=== PATIENT | female | born 1945 | race Caucasian/White ===

== ENCOUNTER 2019-01-12 14:12 | Emergency (ER) | payer MEDICARE ==
[2019-01-12] MEDS ORDERED: predniSONE TAB* 20 MG PO ONE (17:40)
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
[2019-01-12 17:58] VITALS: BP 136/85
== END 2019-01-12 17:57 | disposition home or self-care (01) ==
LOC: ED 14:12
DX: M19.90 Unspecified osteoarthritis, unspecified site (principal); I10 Essential (primary) hypertension; Z88.8 Allergy status to other drugs, medicaments and biological substances; Z79.01 Long term (current) use of anticoagulants; Z86.711 Personal history of pulmonary embolism; Z87.891 Personal history of nicotine dependence
CPT/HCPCS: 99282; J7512

== ENCOUNTER 2019-02-25 12:13 | Inpatient (IN) | payer MEDICARE ==
[2019-02-25] MEDS ORDERED: Magnesium Hydroxide LIQ* 30 ML UDC PO PRN (16:08)
[2019-02-25] MEDS ORDERED: Acetaminophen TAB* 325 MG PO PRN (16:08)
[2019-02-25] MEDS ORDERED: Diazepam TAB(*) 5 MG PO PRN (16:18)
[2019-02-25] MEDS: oxyCODONE/Acetamin 5/325 MG* TAB PO PRN ×2 (16:24→21:42)
[2019-02-25] MEDS: Atorvastatin* 10 MG TAB PO SCH (17:24)
[2019-02-25] MEDS: Warfarin TAB(*) 2.5 MG PO SCH (17:24)
[2019-02-25] MEDS: Docusate CAP* 100 MG PO SCH (20:36)
[2019-02-25] MEDS: Senna TAB PO SCH (20:37)
[2019-02-25] MEDS: Metoprolol Tartrate TAB* 50 mg PO SCH (20:38)
--- NOTE | 2019-02-25 20:45 | HP ---
ADMISSION HISTORY AND PHYSICAL: DATE OF ADMISSION: 02/25/19 REASON FOR ADMISSION: Right total hip replacement; hematoma, right hip. HISTORY OF PRESENT ILLNESS: Ariella Mahoney is a 73-year-old female. She has a medical history significant for atrial fibrillation. She normally takes anticoagulation with Coumadin. She had ongoing pain with her right hip and saw Dr. Dago Serna. It was decided she would do best with a right total hip replacement. She was admitted to [facility] on 02/14/19 and underwent a right total hip replacement. Postoperatively, she was started on Coumadin again as well as Lovenox, which she was started on preoperatively. She was transferred to [facility] for subacute rehab on 02/18/19. Over the weekend, the patient did not feel well. On Thursday morning, the patient had labs drawn which showed that she was quite anemic. She was sent to the emergency room at [facility] for evaluation. Her hemoglobin had dropped to 7.3. She was evaluated in the emergency room. She had some bruising around her right hip area. X-rays did not show any obvious pathology. Her warfarin was put on hold. She was transfused 2 units of packed cells. Her Coumadin, as mentioned, was continued to be held. Her hemoglobin remained stable. She was found to have a Hemoccult stool positive and was started on a proton pump inhibitor. It was recommended that she have an EGD and a colonoscopy as an outpatient. The patient's Coumadin was restarted. She was felt to have physical therapy and occupational therapy needs. She is now being admitted for inpatient rehab so that she might return to independent living. PAST MEDICAL HISTORY: Significant for the aforementioned atrial fibrillation. She has a history of stroke from AFib in 2013, from which she has had a very good recovery. Hypertension. MEDICATIONS: Current medications include: 1. Lisinopril. 2. Hydrochlorothiazide. 3. She is on Lipitor instead of her usual Zocor. 4. Valium. 5. Lopressor. 6. Tramadol for pain control. 7. Protonix. 8. Coumadin. ALLERGIES: DEMEROL AND ERYTHROMYCIN. SOCIAL HISTORY: The patient quit smoking 6 months ago. She is a nondrinker. She lives by herself in an apartment in [facility]. She has a daughter who lives in the area. REVIEW OF SYSTEMS: The patient reports no current shortness of breath or chest pain. PHYSICAL EXAMINATION VITAL SIGNS: The patient's temperature is 97.3, blood pressure is 125/77, pulse is 74, respirations 18. HEENT: Her extraocular movements are intact. Tongue is midline. NECK: Supple. LUNGS: Sounded clear to auscultation bilaterally. HEART: Sounds were regular. S1 and S2 were audible. ABDOMEN: Soft and nontender. EXTREMITIES: Her right hip has a large area of hematoma under the skin. There is slight opening of her wound. Peripheral pulses appear to be intact. NEUROLOGIC: She is awake, alert, and oriented. Muscle strength is 5/5, except the right hip which is 3/5 secondary to pain. FUNCTIONAL EXAM: She transfers with minimal amount of assistance. ASSESSMENT: 1. Right total hip replacement. 2. Hematoma, right hip. PLAN: Our plan is to integrate her into a comprehensive and therapeutic rehab program, which should have the following goals: 1. Physical Therapy will work with the patient. They are going to work on functional transfer training and ambulation training with a walker. 2. Occupational Therapy will see the patient and work on her activities of daily living including toileting and toilet transfers. 3. For DVT prophylaxis as well as atrial fibrillation, we are going to resume her Coumadin and follow her INR . 4. For her atrial fibrillation, we are also going to continue her Coumadin and her Lopressor. 5. For hypertension, we will continue hydrochlorothiazide and lisinopril as well as Lopressor. 6. Adequate analgesia. Tramadol was not effective for her. We are going to try her on Percocet 1 tablet every 4 hours as needed. 7. Her bowels will be regulated. 8. [employer] Driver will be closely involved to make sure that any services and equipment the patient requires are in place prior to discharge. 9. Advance directives. The patient has a DNR order for home. We have filled out a MOLST for her. She does not wish to be resuscitated in case of medical emergency. 10. Home with appropriate services. ESTIMATED LENGTH OF STAY: 7 to 10 days. [id number]/[facility] #: [id number] LITA
[2019-02-26] MEDS: Cyclobenzaprine TAB* 10 MG PO PRN ×2 (03:34→15:43)
[2019-02-26 04:54] LABS: INR 1.11 (0.82-1.09)
[2019-02-26] MEDS: Hydrochlorothiazide TAB* 25 MG PO SCH (09:37)
[2019-02-26] MEDS: Pantoprazole TAB * 40 MG TAB PO SCH (09:39)
[2019-02-26] MEDS: Lisinopril TAB* 5 MG PO SCH (09:39)
[2019-02-26] MEDS: Metoprolol Tartrate TAB* 50 mg PO SCH ×2 (09:39→21:23)
[2019-02-26] MEDS: Docusate CAP* 100 MG PO SCH ×2 (09:40→21:24)
[2019-02-26] MEDS: oxyCODONE/Acetamin 5/325 MG* TAB PO PRN ×3 (12:10→23:55)
--- NOTE | 2019-02-26 15:12 | PN ---
Progress Note Date of Service: 02/26/19 Note: WESLEY COX was visited. Therapy notes read and reviewed. She was able to do therapy but is worn out afterwards and wasn't able to do as much as she thought she could. INR 1.11 Current Medications: Active Medications Generic Name Dose Route Start Last Admin Trade Name Freq PRN Reason Stop Dose Admin Acetaminophen 650 mg 02/25/19 16:08 Tylenol Tab* PO Q6H PRN FEVER/PAIN Atorvastatin Calcium 10 mg 02/25/19 17:00 02/25/19 17:24 Lipitor* PO 10 mg 1700 RICH Administration Cyclobenzaprine HCl 5 mg 02/25/19 16:20 02/26/19 03:34 Flexeril Tab* PO 5 mg TID PRN Administration SPASMS Diazepam 5 mg 02/25/19 16:18 Valium Tab(*) PO Q6H PRN ANXIETY Docusate Sodium 100 mg 02/25/19 21:00 02/26/19 09:40 Colace Cap* PO Not Given BID RICH Ferrous Gluconate 324 mg 02/27/19 09:00 Fergon Tab* PO DAILY RICH Hydrochlorothiazide 12.5 mg 02/26/19 09:00 02/26/19 09:37 Hydrodiuril Tab* PO 12.5 mg DAILY RICH Administration Lisinopril 5 mg 02/26/19 09:00 02/26/19 09:39 Prinivil Tab* PO 5 mg DAILY RICH Administration Magnesium Hydroxide 30 ml 02/25/19 16:08 Milk Of Magnesia Liq* PO Q6H PRN CONSTIPATION Metoprolol Tartrate 50 mg 02/25/19 21:00 02/26/19 09:39 Lopressor Tab* PO 50 mg Q12HR RICH Administration Oxycodone/Acetaminophen 1 tab 02/25/19 16:17 02/26/19 12:10 Percocet 5/325 Tab* PO 1 tab Q4H PRN Administration PAIN - MODERATE TO SEVERE Pantoprazole Sodium 40 mg 02/26/19 09:00 02/26/19 09:39 Protonix Tab* PO 40 mg DAILY RICH Administration Senna 2 tab 02/25/19 21:00 02/25/19 20:37 Senokot Tab* PO Not Given BEDTIME RICH Warfarin Sodium 1.25 mg 02/25/19 17:00 02/25/19 17:24 Coumadin Tab(*) PO 1.25 mg DAILY@1700 [facility] Administration Protocol Vital Signs: Vital Signs Temp Pulse Resp BP Pulse Ox 98.2 F 83 16 118/66 100 02/26/19 06:10 02/26/19 06:10 02/26/19 14:25 02/26/19 06:10 02/26/19 06:10 Lab Results: Laboratory Results - last 24 hr 02/26/19 04:33 INR (Anticoag Therapy) 1.11 H Exam: GENERAL: In no distress LUNGS: Clear bilaterally HEART: Irreg rhythm. S1, S2 ABDOMEN: Soft, +BS EXTREMITIES: Right leg edematous, ecchymotic near hip NEUROLOGIC: Alert and oriented, sensation intact, some surgery related weakness in right hip Assessment/Plan: 1. Right total hip replacement, hematoma, right hip: PT/OT 2. Atrial Fibrillation: Coumadin restarted. Lopressor 3. Anemia, secondary to hematoma: Check CBC Thursday 4. DVT Prophylaxis: Coumadin 5. Heme + Stool: Protonix. GI workup as outpatient 6. Advance Directives: DNR. Has MOLST 7. Analgesia: Percocet/Flexeril/Tylenol 02/26/19 15:07 02/26/19 15:09 02/26/19 15:13
[2019-02-26] MEDS: Warfarin TAB(*) 2.5 MG PO SCH (17:00)
[2019-02-26] MEDS: Atorvastatin* 10 MG TAB PO SCH (17:01)
[2019-02-26] MEDS: Senna TAB PO SCH (21:24)
[2019-02-27] MEDS: Hydrochlorothiazide TAB* 25 MG PO SCH (09:00)
[2019-02-27] MEDS: Docusate CAP* 100 MG PO SCH ×2 (09:01→21:06)
[2019-02-27] MEDS: Lisinopril TAB* 5 MG PO SCH (09:02)
[2019-02-27] MEDS: Metoprolol Tartrate TAB* 50 mg PO SCH ×2 (09:02→21:06)
[2019-02-27] MEDS: Cyclobenzaprine TAB* 10 MG PO PRN (09:03)
[2019-02-27] MEDS: Pantoprazole TAB * 40 MG TAB PO SCH (09:03)
[2019-02-27] MEDS: Ferrous Gluconate TAB* 324 MG TAB PO SCH (10:34)
[2019-02-27] MEDS: oxyCODONE/Acetamin 5/325 MG* TAB PO PRN ×2 (10:43→21:06)
[2019-02-27] MEDS: Atorvastatin* 10 MG TAB PO SCH (17:21)
[2019-02-27] MEDS: Warfarin TAB(*) 2.5 MG PO SCH (17:21)
--- NOTE | 2019-02-27 20:32 | PN ---
Progress Note Date of Service: 02/27/19 Note: WESLEY COX was visited. Nursing notes read and reviewed. She thinks she is doing okay. Had a BM today. Hip ecchymotic. Labs in am Current Medications: Active Medications Generic Name Dose Route Start Last Admin Trade Name Freq PRN Reason Stop Dose Admin Acetaminophen 650 mg 02/25/19 16:08 Tylenol Tab* PO Q6H PRN FEVER/PAIN Atorvastatin Calcium 10 mg 02/25/19 17:00 02/27/19 17:21 Lipitor* PO 10 mg 1700 RICH Administration Cyclobenzaprine HCl 5 mg 02/25/19 16:20 02/27/19 09:03 Flexeril Tab* PO 5 mg TID PRN Administration SPASMS Diazepam 5 mg 02/25/19 16:18 Valium Tab(*) PO Q6H PRN ANXIETY Docusate Sodium 100 mg 02/25/19 21:00 02/27/19 09:01 Colace Cap* PO 100 mg BID RICH Administration Ferrous Gluconate 324 mg 02/27/19 09:00 02/27/19 10:34 Fergon Tab* PO 324 mg DAILY RICH Administration Hydrochlorothiazide 12.5 mg 02/26/19 09:00 02/27/19 09:00 Hydrodiuril Tab* PO 12.5 mg DAILY RICH Administration Lisinopril 5 mg 02/26/19 09:00 02/27/19 09:02 Prinivil Tab* PO 5 mg DAILY RICH Administration Magnesium Hydroxide 30 ml 02/25/19 16:08 Milk Of Magnesia Liq* PO Q6H PRN CONSTIPATION Metoprolol Tartrate 50 mg 02/25/19 21:00 02/27/19 09:02 Lopressor Tab* PO 50 mg Q12HR RICH Administration Oxycodone/Acetaminophen 1 tab 02/25/19 16:17 02/27/19 10:43 Percocet 5/325 Tab* PO 1 tab Q4H PRN Administration PAIN - MODERATE TO SEVERE Pantoprazole Sodium 40 mg 02/26/19 09:00 02/27/19 09:03 Protonix Tab* PO 40 mg DAILY RICH Administration Senna 2 tab 02/25/19 21:00 02/26/19 21:24 Senokot Tab* PO Not Given BEDTIME RICH Warfarin Sodium 1.25 mg 02/25/19 17:00 02/27/19 17:21 Coumadin Tab(*) PO 1.25 mg DAILY@1700 [facility] Administration Protocol Vital Signs: Vital Signs Temp Pulse Resp BP Pulse Ox 98.3 F 61 16 119/74 97 02/27/19 16:58 02/27/19 16:58 02/27/19 16:59 02/27/19 16:58 02/27/19 06:25 Exam: GENERAL: In no distress LUNGS: Clear bilaterally HEART: Irreg rhythm. S1, S2 ABDOMEN: Soft, +BS EXTREMITIES: Right leg edematous, ecchymotic near hip NEUROLOGIC: Alert and oriented, sensation intact, some surgery related weakness in right hip Assessment/Plan: 1. Right total hip replacement, hematoma, right hip: PT/OT 2. Atrial Fibrillation: Coumadin restarted. Lopressor. INR in am 3. Anemia, secondary to hematoma: Check CBC in am 4. DVT Prophylaxis: Coumadin 5. Heme + Stool: Protonix. GI workup as outpatient 6. Advance Directives: DNR. Has MOLST 7. Analgesia: Percocet/Flexeril/Tylenol 02/27/19 20:32
[2019-02-27] MEDS: Senna TAB PO SCH (21:06)
[2019-02-28] MEDS: Cyclobenzaprine TAB* 10 MG PO PRN ×2 (03:45→15:02)
[2019-02-28 05:00] LABS: INR 1.2 (0.82-1.09)
[2019-02-28 05:09] LABS: Albumin 2.9 g/dL (3.2-5.2); Calcium 8.8 mg/dL (8.6-10.3); Potassium 4.2 mmol/L (3.5-5.0); Total Bilirubin 0.7 mg/dL (0.2-1.0)
[2019-02-28 05:15] LABS: Albumin/Globulin Ratio 1.4 (1-3); BUN/Creatinine Ratio 23.5 (8-20); EGFR African American 55.7 (>60); Globulin 2.1 g/dL (2-4)
[2019-02-28 05:21] LABS: ABS Basophils 0.1 10^3/ul (0-0.2); ABS Eosinophils 0.1 10^3/ul (0-0.6); ABS Monocytes 0.6 10^3/ul (0-0.8); ABS Neutrophils 5.6 10^3/ul (1.5-7.7); Eosinophil % 1.8 %; Hematocrit 27 % (35-47); Hemoglobin 9.1 g/dL (12.0-16.0); Lymphocyte % 13.7 %; Mean Corpuscular HGB Conc 34 g/dL (31-36); Mean Corpuscular Hemoglobin 31 pg (27-31); Mean Corpuscular Volume 92 fL (80-97); Mean Platelet Volume 7.2 fL (7.4-10.4); Platelet Count 420 10^3/uL (150-450); Red Blood Count 2.93 10^6 /uL (3.70-4.87); Red Cell Distribution Width 15 % (10-15); White Blood Count 7.5 10^3/uL (3.5-10.8)
[2019-02-28] MEDS: Docusate CAP* 100 MG PO SCH ×2 (08:03→19:05)
[2019-02-28] MEDS: Pantoprazole TAB * 40 MG TAB PO SCH (08:10)
[2019-02-28] MEDS: Ferrous Gluconate TAB* 324 MG TAB PO SCH (08:10)
[2019-02-28] MEDS: oxyCODONE/Acetamin 5/325 MG* TAB PO PRN ×3 (08:10→22:21)
[2019-02-28] MEDS: Metoprolol Tartrate TAB* 50 mg PO SCH ×2 (08:10→20:07)
[2019-02-28] MEDS: Lisinopril TAB* 5 MG PO SCH (08:10)
[2019-02-28] MEDS: Hydrochlorothiazide TAB* 25 MG PO SCH (08:10)
--- NOTE | 2019-02-28 12:53 | PMRUTEAM ---
PMRU: Team Meeting Current Status: Nursing: Current Status Skin Deviations [Right lower Other arm] Skin Deviations [Right Hip] Incision Skin Deviations [Left Lower Bruise Arm] Skin Deviation Description [ PIV removed 02/25/19 Right lower arm] Skin Deviation Description [ Incision on right hip, dressing has a small to Right Hip] scant amount of bloody drainage. Patient stated it was changed yesterday evening. Skin Deviation Description [ previous blood draw Left Lower Arm] Drain Type [Left Lower Arm] None Physical Therapy: Current Status Bed Mobility Assistance Min Assist Transfer Mobility Assistance Contact Guard Assist Transfer/Bed Mobility Rolling Walker Recommended Devices Ambulation Assistance Contact Guard Assist 70 feet Ambulation Assistive Devices Rolling Walker Occupational Therapy: Current Status Upper Body Dressing Supervision Lower Body Dressing Supervision Bathing Supervision Toileting Contact Guard Assist Toilet Transfer Contact Guard Assist Shower Transfer Contact Guard Assist Eating Independent Rec Therapy: Current Status Summary of Assessment and Pt. had just arrived to the unit - was open to Clinical Impression conversation and very engaged throughout. Pt. expressed excitement to be on the unit. Pt. identified with interests and active involvement in them prior to admission. Pt. participated in pet therapy and was interested in continued leisure visits. Offered reading material which pt . accepted and was grateful for. Treatment Goals Pt. will engage in leisure activities while on the unit. Treatment Plan Provide recreation therapy and encourage involvement. Social Work: Current Status Discharge Plan return home with home care svs and family support Potential for Family Training TBD pt's family has limited availability to provide direct care Anticipated Discharge Home Destination Discharge With home care svs and family support Goals: Physical Therapy: Initial Goals Bed Mobility Assistance Independent Transfer Mobility Assistance Independent Transfer/Bed Mobility Rolling Walker Recommended Devices Ambulation Independent Ambulation Recommended Devices Rolling Walker Ambulation Distance 300 Stairs Assistance Independent Stair Recommended Devices Two Rails Number of Stairs 5 Physical Therapy: Updated Goals Transfer/Bed Mobility Rolling Walker Recommended Devices Occupational Therapy: Initial Goals Goals to be Completed in (Days 7-10 days ) Upper Body Bathing Routine Modified Independent with Lower Body Bathing Routine Modified Independent with Upper Body Dressing Routine Modified Independent with Lower Body Dressing Routine Modified Independent with Toilet Hygeine and Clothing Modified Independent with Management Routine Toilet Transfer Routine Modified Independent with Tub Transfer Routine Modified Independent with Functional Transfers for ADL Modified Independent with Grooming Routine Modified Independent with Feeding Routine Independent Light Housekeeping Tasks Modified Independent with Social Work: Goals Discharge Plan return home with home care svs and family support Potential for Family Training TBD pt's family has limited availability to provide direct care Anticipated Discharge Home Destination Discharge With home care svs and family support Care Plan: Care Plan Cardiovascular-Improve/Maintain Start: 02/25/19 21:46 Freq: DAILY@0400,1600 Status: Active Target: Protocol: Activity Type Activity Date Activity User E-Sign Co-Sign Detail Recorded Client Recorded Date Recorded By Document 02/28/19 10:19 [id number] 02/28/19 10:20 [id number] 02/28/19 10:19 Outcome: Cardiovascular Current Cardiovascular Outcome/Goal Maintain/ improve perfusion Free of abnormal cardiac symptoms Progression Towards Outcome/Goal Progressing DVT Prophylaxis- Improve/Maintain Start: 02/25/19 21:48 Freq: QSHIFT Status: Active Target: Protocol: Activity Type Activity Date Activity User E-Sign Co-Sign Detail Recorded Client Recorded Date Recorded By Document 02/28/19 08:00 [id number] 02/28/19 10:20 [id number] 02/28/19 08:00 PMRU Outcome: DVT Prophylaxis Outcome/Goals Remains Free of DVT Complies with DVT Prophylaxis /Treatment Demonstrates Knowledge of DVT Prevention/ Treatment TEDS Stockings on Every AM, Off at HS Progression Toward Outcome/Goals Progressing Discharge Planning Start: 02/25/19 21:46 Freq: DAILY@0400,1600 Status: Active Target: Protocol: Activity Type Activity Date Activity User E-Sign Co-Sign Detail Recorded Client Recorded Date Recorded By Document 02/28/19 10:19 [id number] 02/28/19 10:20 [id number] 02/28/19 10:19 Outcome: Discharge Planning Outcome/Goals Demonstrates Understanding of Discharge Plan Necessary Services Arranged for Post Discharge Care Progression Toward Outcome/Goals Progressing Education-Improve/Maintain Start: 02/25/19 21:46 Freq: DAILY@0400,1600 Status: Active Target: Protocol: Activity Type Activity Date Activity User E-Sign Co-Sign Detail Recorded Client Recorded Date Recorded By Document 02/28/19 10:19 [id number] [id number] 02/28/19 10:20 [id number] 02/28/19 10:19 Outcome: Education Outcome/Goals Demonstrates Understanding of Plan of Care to their Capacity Demonstrates Skills Required to Manage Self Care to Their Ability Understands Their Diagnosis and How to Prevent Complications Understands Medications and /or Treatments to the Best of Their Ablilty Progression Toward Outcome/Goals Progressing Gastrointestinal-Improve/Maintain Start: 02/25/19 21:46 Freq: DAILY@0400,1600 Status: Active Target: Protocol: Activity Type Activity Date Activity User E-Sign Co-Sign Detail Recorded Client Recorded Date Recorded By Document 02/28/19 10:19 [id number] 02/28/19 10:20 [id number] 02/28/19 10:19 Outcome: Gastrointestinal Outcome/Goals Maintain/ Achieve Bowel Regularity in Accordance with Pt's Baseline Remain Free of Emesis Progression Toward Outcome/Goals Progressing Genitourinary-Improve/Maintain Start: 02/25/19 21:46 Freq: DAILY@0400,1600 Status: Active Target: Protocol: Activity Type Activity Date Activity User E-Sign Co-Sign Detail Recorded Client Recorded Date Recorded By Document 02/28/19 10:19 [id number] 02/28/19 10:20 [id number] 02/28/19 10:19 Outcome: Genitourinary Outcome/Goals Maintain/ Achieve Urinary Continence Maintain/ Achieve Adequate Urinary Output Remain Free of Hospital- Acquired UTI Progression Toward Outcome/Goals Progressing Infection-Improve/Maintain Start: 02/25/19 21:46 Freq: DAILY@0400,1600 Status: Active Target: Protocol: Activity Type Activity Date Activity User E-Sign Co-Sign Detail Recorded Client Recorded Date Recorded By Document 02/28/19 10:19 [id number] [id number] 02/28/19 10:20 [id number] 02/28/19 10:19 Outcome: Infection Outcome/Goals Remain Free of Infection Progression Toward Outcome/Goals Progressing Mobility- Improve/Maintain Start: 02/26/19 16:01 Freq: DAILY Status: Active Target: Protocol: Activity Type Activity Date Activity User E-Sign Co-Sign Detail Recorded Client Recorded Date Recorded By Document 02/26/19 16:01 [id number] 02/26/19 16:02 [id number] 02/26/19 16:01 PMRU Outcome: Mobility Physical Therapy Evaluation and Yes Treatment Activity OOB with Assistance Yes WBAT Yes Device Yes Assistance Yes Patient to be seen 5x/wk for 60-120 min/ Therex day for: Mobility Training Gait Training Balance Outcome/Goals Maintain/ Achieve Baseline Mobility Status Improve Mobility Status Demonstrates Proper Use of Assistive Devices Free from Complications of Immobility Bed Mobility Yes: independent Transfers Yes: independent with RW Gait x ft Yes: independnet with RW to 300' Up/Down Stairs Yes: independnet up/ down 5 stairs with 2 rails. Mobility-Improve/Maintain Start: 02/25/19 21:46 Freq: DAILY@0400,1600 Status: Active Target: Protocol: Activity Type Activity Date Activity User E-Sign Co-Sign Detail Recorded Client Recorded Date Recorded By Document 02/28/19 10:19 [id number] 02/28/19 10:20 [id number] 02/28/19 10:19 Outcome: Mobility Outcome/Goals Maintain/ Achieve Baseline Mobility Status Improve Mobility Status Demonstrates Proper Use of Assistive Devices Free from Complications of Immobility Progression Toward Outcome/Goals Progressing Medicine Note: Length of Stay: 3 days Anticipated Discharge Destination: Home Tentative Discharge Date: 03/03/19 Discharged to: Home
[2019-02-28] MEDS ORDERED: Warfarin TAB(*) 2.5 MG PO SCH (18:00)
[2019-02-28] MEDS: Atorvastatin* 10 MG TAB PO SCH (18:12)
--- NOTE | 2019-02-28 18:20 | PN ---
Progress Note Date of Service: 02/28/19 Note: WESLEY COX was visited. Therapy notes read and reviewed. She was discussed in interdisciplinary plan of care rounds. Her INR in 1.2, will give 2.5 mg of Coumadin tonight. Hb 9.1. She has some complaints of hip pain Current Medications: Active Medications Generic Name Dose Route Start Last Admin Trade Name Freq PRN Reason Stop Dose Admin Acetaminophen 650 mg 02/25/19 16:08 Tylenol Tab* PO Q6H PRN FEVER/PAIN Atorvastatin Calcium 10 mg 02/25/19 17:00 02/28/19 18:12 Lipitor* PO 10 mg 1700 RICH Administration Cyclobenzaprine HCl 5 mg 02/25/19 16:20 02/28/19 15:02 Flexeril Tab* PO 5 mg TID PRN Administration SPASMS Diazepam 5 mg 02/25/19 16:18 Valium Tab(*) PO Q6H PRN ANXIETY Docusate Sodium 100 mg 02/25/19 21:00 02/28/19 08:03 Colace Cap* PO Not Given BID RICH Ferrous Gluconate 324 mg 02/27/19 09:00 02/28/19 08:10 Fergon Tab* PO 324 mg DAILY RICH Administration Hydrochlorothiazide 12.5 mg 02/26/19 09:00 02/28/19 08:10 Hydrodiuril Tab* PO 12.5 mg DAILY RICH Administration Lisinopril 5 mg 02/26/19 09:00 02/28/19 08:10 Prinivil Tab* PO 5 mg DAILY RICH Administration Magnesium Hydroxide 30 ml 02/25/19 16:08 Milk Of Magnesia Liq* PO Q6H PRN CONSTIPATION Metoprolol Tartrate 50 mg 02/25/19 21:00 02/28/19 08:10 Lopressor Tab* PO 50 mg Q12HR RICH Administration Oxycodone/Acetaminophen 1 tab 02/25/19 16:17 02/28/19 18:14 Percocet 5/325 Tab* PO 1 tab Q4H PRN Administration PAIN - MODERATE TO SEVERE Pantoprazole Sodium 40 mg 02/26/19 09:00 02/28/19 08:10 Protonix Tab* PO 40 mg DAILY RICH Administration Senna 2 tab 02/25/19 21:00 02/27/19 21:06 Senokot Tab* PO Not Given BEDTIME RICH Warfarin Sodium 2.5 mg 02/28/19 18:00 02/28/19 18:12 Coumadin Tab(*) PO 2.5 mg Mo@1700 [facility] Administration Protocol Warfarin Sodium 1.25 mg 03/01/19 17:00 Coumadin Tab(*) PO SuTuWeThFrSa@1700 [facility] Protocol Vital Signs: Vital Signs Temp Pulse Resp BP Pulse Ox 98.0 F 84 18 113/62 98 02/28/19 15:52 02/28/19 15:52 02/28/19 18:14 02/28/19 15:52 02/28/19 16:15 Lab Results: Laboratory Results - last 24 hr 02/28/19 02/28/19 02/28/19 04:43 04:43 05:15 WBC 7.5 RBC 2.93 L Hgb 9.1 L Hct 27 L MCV 92 MCH 31 MCHC 34 RDW 15 Plt Count 420 MPV 7.2 L Neut % (Auto) 74.9 Lymph % (Auto) 13.7 [place] % (Auto) 8.5 Eos % (Auto) 1.8 Baso % (Auto) 1.1 Absolute Neuts (auto) 5.6 Absolute Lymphs (auto) 1.0 Absolute Monos (auto) 0.6 Absolute Eos (auto) 0.1 Absolute Basos (auto) 0.1 Absolute Nucleated RBC 0.0 Nucleated RBC % 0.0 INR (Anticoag Therapy) 1.20 H Sodium 136 Potassium 4.2 Chloride 105 Carbon Dioxide 27 Anion Gap 4 BUN 27 H Creatinine 1.15 H Est GFR ( Amer) 55.7 Est GFR (Non-Af Amer) 46.0 BUN/Creatinine Ratio 23.5 H Glucose 106 H Calcium 8.8 Total Bilirubin 0.70 AST 21 ALT 27 Alkaline Phosphatase 99 Total Protein 5.0 L Albumin 2.9 L Globulin 2.1 Albumin/Globulin Ratio 1.4 Exam: GENERAL: In no distress LUNGS: Clear bilaterally HEART: Irreg rhythm. S1, S2 ABDOMEN: Soft, +BS EXTREMITIES: Right leg edematous, ecchymotic near hip NEUROLOGIC: Alert and oriented, sensation intact, some surgery related weakness in right hip Assessment/Plan: 1. Right total hip replacement, hematoma, right hip: PT/OT 2. Atrial Fibrillation: Coumadin restarted. Lopressor. INR 1.2 coumadin 2.5 mg tonight 3. Anemia, secondary to hematoma: Hb 9.1 today 4. DVT Prophylaxis: Coumadin 5. Heme + Stool: Protonix. GI workup as outpatient 6. Advance Directives: DNR. Has MOLST 7. Analgesia: Percocet/Flexeril/Tylenol 02/28/19 18:20
[2019-02-28] MEDS: Warfarin TAB(*) 2.5 MG PO SCH (19:05)
[2019-02-28] MEDS: Senna TAB PO SCH (19:05)
[2019-03-01] MEDS: Cyclobenzaprine TAB* 10 MG PO PRN ×2 (02:35→17:48)
[2019-03-01 04:56] LABS: INR 1.27 (0.82-1.09)
[2019-03-01] MEDS: Metoprolol Tartrate TAB* 50 mg PO SCH ×2 (08:48→20:15)
[2019-03-01] MEDS: Ferrous Gluconate TAB* 324 MG TAB PO SCH (08:48)
[2019-03-01] MEDS: Lisinopril TAB* 5 MG PO SCH (08:48)
[2019-03-01] MEDS: Pantoprazole TAB * 40 MG TAB PO SCH (08:48)
[2019-03-01] MEDS: Hydrochlorothiazide TAB* 25 MG PO SCH (08:48)
[2019-03-01] MEDS: Docusate CAP* 100 MG PO SCH ×2 (08:51→20:15)
--- NOTE | 2019-03-01 12:52 | PMRUTEAM ---
PMRU: Team Meeting Current Status: Nursing: Current Status Skin Deviations [Right lower Other arm] Skin Deviations [Right Hip] Incision Skin Deviations [Left Lower Bruise Arm] Skin Deviation Description [ PIV removed 02/25/19 Right lower arm] Skin Deviation Description [ Incision on right hip, dressing has a small to Right Hip] scant amount of bloody drainage. Patient stated it was changed yesterday evening. Skin Deviation Description [ previous blood draw Left Lower Arm] Drain Type [Left Lower Arm] None Bladder Current Status 1 assist with toileting Bowel Current Status Continent Nutrition Current Status Eats 100% of most meals Medication Current Status Needs reinforcement Physical Therapy: Current Status Bed Mobility Assistance Supervision Transfer Mobility Assistance Supervision Transfer/Bed Mobility Rolling Walker Recommended Devices Ambulation Assistance Supervision Ambulation Assistive Devices Rolling Walker Number of Feet Patient 150 Ambulated Stairs Assistance Contact Guard Assist Stairs Recommended Devices Two Rails Number of Stairs 2x2 (4) Objective Comments patient completes stairs with a step to step pattern using 2 rails. Occupational Therapy: Current Status Upper Body Dressing Supervision Lower Body Dressing Min Assist Bathing Contact Guard Assist Toileting Supervision Toilet Transfer Supervision Shower Transfer Contact Guard Assist Eating Independent Rec Therapy: Current Status Summary of Assessment and Recreation Therapy Assessment complete and pt. is Clinical Impression aware of services. Reading material has been provided to pt. at her request. Pt. has been engaged in pet therapy as well. Treatment Goals Pt. will engage in leisure activities while on the unit. Treatment Plan Provide recreation therapy and encourage involvement. Social Work: Current Status Discharge Plan return home with home care svs and family support Potential for Family Training TBD pt's family has limited availability to provide direct care Anticipated Discharge Home Destination Discharge With home care svs and family support Nutrition: Current Status Monitoring Pt s/p R total hip replacement at [facility] 09/04. Pt eating generally 100% of meals on regular diet; eating independently. No evidence difficulty chewing/swallowing per nursing documentation. BMs 02/27, 02/28. Labs reviewed. No acute concerns currently identified; full nutrition assessment to follow per protocol. Goals: Physical Therapy: Initial Goals Bed Mobility Assistance Independent Transfer Mobility Assistance Independent Transfer/Bed Mobility Rolling Walker Recommended Devices Ambulation Independent Ambulation Recommended Devices Rolling Walker Ambulation Distance 300 Stairs Assistance Independent Stair Recommended Devices Two Rails Number of Stairs 5 Physical Therapy: Updated Goals Transfer/Bed Mobility Rolling Walker Recommended Devices Occupational Therapy: Initial Goals Goals to be Completed in (Days 7-10 days ) Upper Body Bathing Routine Modified Independent with Lower Body Bathing Routine Modified Independent with Upper Body Dressing Routine Modified Independent with Lower Body Dressing Routine Modified Independent with Toilet Hygeine and Clothing Modified Independent with Management Routine Toilet Transfer Routine Modified Independent with Tub Transfer Routine Modified Independent with Functional Transfers for ADL Modified Independent with Grooming Routine Modified Independent with Feeding Routine Independent Light Housekeeping Tasks Modified Independent with Nursing: Goals Bladder Goal 1 assist with toileting Bowel Goal Continent Nutrition Goal Eats 100% of all meals Medication Goal Independent with medications Nutrition: Goals Intervention Goals 1. Intake will remain adequate to promote post-op healing 2. Pt will maintain regular bowel pattern without constipation/diarrhea Social Work: Goals Discharge Plan return home with home care svs and family support Potential for Family Training TBD pt's family has limited availability to provide direct care Anticipated Discharge Home Destination Discharge With home care svs and family support Care Plan: Care Plan Cardiovascular-Improve/Maintain Start: 02/25/19 21:46 Freq: DAILY@0400,1600 Status: Active Target: Protocol: Activity Type Activity Date Activity User E-Sign Co-Sign Detail Recorded Client Recorded Date Recorded By Document 03/01/19 00:03 [id number] 03/01/19 00:03 [id number] 03/01/19 00:03 Outcome: Cardiovascular Current Cardiovascular Outcome/Goal Maintain/ achieve baseline HR, BP , Perfusion Progression Towards Outcome/Goal Progressing DVT Prophylaxis- Improve/Maintain Start: 02/25/19 21:48 Freq: QSHIFT Status: Active Target: Protocol: Activity Type Activity Date Activity User E-Sign Co-Sign Detail Recorded Client Recorded Date Recorded By Document 03/01/19 00:03 [id number] [email or web address] 03/01/19 00:03 [id number] 03/01/19 00:03 PMRU Outcome: DVT Prophylaxis Outcome/Goals Remains Free of DVT Complies with DVT Prophylaxis /Treatment Demonstrates Knowledge of DVT Prevention/ Treatment TEDS Stockings on Every AM, Off at HS Progression Toward Outcome/Goals Progressing Discharge Planning Start: 02/25/19 21:46 Freq: DAILY@0400,1600 Status: Active Target: Protocol: Activity Type Activity Date Activity User E-Sign Co-Sign Detail Recorded Client Recorded Date Recorded By Document 03/01/19 00:03 [id number] [email or web address] 03/01/19 00:03 [id number] 03/01/19 00:03 Outcome: Discharge Planning Outcome/Goals Demonstrates Understanding of Discharge Plan Necessary Services Arranged for Post Discharge Care Progression Toward Outcome/Goals Progressing Education-Improve/Maintain Start: 02/25/19 21:46 Freq: DAILY@0400,1600 Status: Active Target: Protocol: Activity Type Activity Date Activity User E-Sign Co-Sign Detail Recorded Client Recorded Date Recorded By Document 03/01/19 00:03 [id number] [email or web address] 03/01/19 00:03 [id number] 03/01/19 00:03 Outcome: Education Outcome/Goals Demonstrates Understanding of Plan of Care to their Capacity Demonstrates Skills Required to Manage Self Care to Their Ability Progression Toward Outcome/Goals Progressing Gastrointestinal-Improve/Maintain Start: 02/25/19 21:46 Freq: DAILY@0400,1600 Status: Active Target: Protocol: Activity Type Activity Date Activity User E-Sign Co-Sign Detail Recorded Client Recorded Date Recorded By Document 03/01/19 00:03 [id number] [email or web address] 03/01/19 00:03 [id number] 03/01/19 00:03 Outcome: Gastrointestinal Outcome/Goals Maintain/ Achieve Bowel Regularity in Accordance with Pt's Baseline Remain Free of Emesis Progression Toward Outcome/Goals Progressing Genitourinary-Improve/Maintain Start: 02/25/19 21:46 Freq: DAILY@0400,1600 Status: Active Target: Protocol: Activity Type Activity Date Activity User E-Sign Co-Sign Detail Recorded Client Recorded Date Recorded By Document 03/01/19 00:03 [id number] [email or web address] 03/01/19 00:03 [id number] 03/01/19 00:03 Outcome: Genitourinary Outcome/Goals Maintain/ Achieve Urinary Continence Maintain/ Achieve Adequate Urinary Output Progression Toward Outcome/Goals Progressing Infection-Improve/Maintain Start: 02/25/19 21:46 Freq: DAILY@0400,1600 Status: Active Target: Protocol: Activity Type Activity Date Activity User E-Sign Co-Sign Detail Recorded Client Recorded Date Recorded By Document 03/01/19 00:03 [id number] [email or web address] 03/01/19 00:03 [id number] 03/01/19 00:03 Outcome: Infection Outcome/Goals Remain Free of Infection Understand Infection Prevention Strategies Progression Toward Outcome/Goals Progressing Mobility- Improve/Maintain Start: 02/26/19 16:01 Freq: DAILY Status: Active Target: Protocol: Activity Type Activity Date Activity User E-Sign Co-Sign Detail Recorded Client Recorded Date Recorded By Document 02/26/19 16:01 [id number] [email or web address] 02/26/19 16:02 [id number] 02/26/19 16:01 PMRU Outcome: Mobility Physical Therapy Evaluation and Yes Treatment Activity OOB with Assistance Yes WBAT Yes Device Yes Assistance Yes Patient to be seen 5x/wk for 60-120 min/ Therex day for: Mobility Training Gait Training Balance Outcome/Goals Maintain/ Achieve Baseline Mobility Status Improve Mobility Status Demonstrates Proper Use of Assistive Devices Free from Complications of Immobility Bed Mobility Yes: independent Transfers Yes: independent with RW Gait x ft Yes: independnet with RW to 300' Up/Down Stairs Yes: independnet up/ down 5 stairs with 2 rails. Mobility-Improve/Maintain Start: 02/25/19 21:46 Freq: DAILY@0400,1600 Status: Active Target: Protocol: Activity Type Activity Date Activity User E-Sign Co-Sign Detail Recorded Client Recorded Date Recorded By Document 03/01/19 00:03 [id number] [email or web address] 03/01/19 00:03 [id number] 03/01/19 00:03 Outcome: Mobility Outcome/Goals Maintain/ Achieve Baseline Mobility Status Improve Mobility Status Demonstrates Proper Use of Assistive Devices Progression Toward Outcome/Goals Progressing Medicine Note: Length of Stay: 2 days Anticipated Discharge Destination: Home Tentative Discharge Date: 03/03/19 Discharged to: home
[2019-03-01] MEDS: oxyCODONE/Acetamin 5/325 MG* TAB PO PRN ×2 (14:23→21:25)
[2019-03-01] MEDS: Atorvastatin* 10 MG TAB PO SCH (17:03)
[2019-03-01] MEDS: Warfarin TAB(*) 2.5 MG PO SCH (17:06)
--- NOTE | 2019-03-01 18:47 | PN ---
Progress Note Date of Service: 03/01/19 Note: WESLEY COX was visited. Therapy notes read and reviewed. She was discussed in interdisciplinary team rounds. She feels like she is doing ok. Hip oozing slightly. INR 1.27 Current Medications: Active Medications Generic Name Dose Route Start Last Admin Trade Name Freq PRN Reason Stop Dose Admin Acetaminophen 650 mg 02/25/19 16:08 Tylenol Tab* PO Q6H PRN FEVER/PAIN Atorvastatin Calcium 10 mg 02/25/19 17:00 03/01/19 17:03 Lipitor* PO 10 mg 1700 RICH Administration Cyclobenzaprine HCl 5 mg 02/25/19 16:20 03/01/19 17:48 Flexeril Tab* PO 5 mg TID PRN Administration SPASMS Diazepam 5 mg 02/25/19 16:18 Valium Tab(*) PO Q6H PRN ANXIETY Docusate Sodium 100 mg 02/25/19 21:00 03/01/19 08:51 Colace Cap* PO Not Given BID RICH Ferrous Gluconate 324 mg 02/27/19 09:00 03/01/19 08:48 Fergon Tab* PO 324 mg DAILY RICH Administration Hydrochlorothiazide 12.5 mg 02/26/19 09:00 03/01/19 08:48 Hydrodiuril Tab* PO 12.5 mg DAILY RICH Administration Lisinopril 5 mg 02/26/19 09:00 03/01/19 08:48 Prinivil Tab* PO 5 mg DAILY RICH Administration Magnesium Hydroxide 30 ml 02/25/19 16:08 Milk Of Magnesia Liq* PO Q6H PRN CONSTIPATION Metoprolol Tartrate 50 mg 02/25/19 21:00 03/01/19 08:48 Lopressor Tab* PO 50 mg Q12HR RICH Administration Oxycodone/Acetaminophen 1 tab 02/25/19 16:17 03/01/19 14:23 Percocet 5/325 Tab* PO 1 tab Q4H PRN Administration PAIN - MODERATE TO SEVERE Pantoprazole Sodium 40 mg 02/26/19 09:00 03/01/19 08:48 Protonix Tab* PO 40 mg DAILY RICH Administration Senna 2 tab 02/25/19 21:00 02/28/19 19:05 Senokot Tab* PO Not Given BEDTIME RICH Warfarin Sodium 2.5 mg 02/28/19 18:00 07/15/19 18:12 Coumadin Tab(*) PO 2.5 mg Mo@1700 [facility] Administration Protocol Warfarin Sodium 1.25 mg 03/01/19 17:00 03/01/19 17:06 Coumadin Tab(*) PO 1.25 mg SuTuWeThFrSa@1700 [facility] Administration Protocol Vital Signs: Vital Signs Temp Pulse Resp BP Pulse Ox 97.5 F 82 18 108/67 100 03/01/19 15:42 03/01/19 15:42 03/01/19 18:04 03/01/19 15:42 03/01/19 15:59 Lab Results: Laboratory Results - last 24 hr 03/01/19 04:41 INR (Anticoag Therapy) 1.27 H Exam: GENERAL: In no distress LUNGS: Clear bilaterally HEART: Irreg rhythm. S1, S2 ABDOMEN: Soft, +BS EXTREMITIES: Right leg edematous, ecchymotic near hip NEUROLOGIC: Alert and oriented, sensation intact, some surgery related weakness in right hip Assessment/Plan: 1. Right total hip replacement, hematoma, right hip: PT/OT 2. Atrial Fibrillation: Coumadin restarted. Lopressor. INR 1.27 coumadin 1.25 mg tonight 3. Anemia, secondary to hematoma: Hb 9.1 today 4. DVT Prophylaxis: Coumadin 5. Heme + Stool: Protonix. GI workup as outpatient 6. Advance Directives: DNR. Has MOLST 7. Analgesia: Percocet/Flexeril/Tylenol 03/01/19 18:47
[2019-03-01] MEDS: Senna TAB PO SCH (20:16)
[2019-03-02 06:24] LABS: INR 1.5 (0.82-1.09)
[2019-03-02] MEDS: Hydrochlorothiazide TAB* 25 MG PO SCH (08:04)
[2019-03-02] MEDS: Docusate CAP* 100 MG PO SCH ×2 (08:05→20:13)
[2019-03-02] MEDS: Pantoprazole TAB * 40 MG TAB PO SCH (08:05)
[2019-03-02] MEDS: Ferrous Gluconate TAB* 324 MG TAB PO SCH (08:05)
[2019-03-02] MEDS: Lisinopril TAB* 5 MG PO SCH (08:05)
[2019-03-02] MEDS: Cyclobenzaprine TAB* 10 MG PO PRN (08:06)
[2019-03-02] MEDS: Metoprolol Tartrate TAB* 50 mg PO SCH ×2 (08:07→20:12)
[2019-03-02] MEDS: oxyCODONE/Acetamin 5/325 MG* TAB PO PRN ×2 (16:10→21:55)
[2019-03-02] MEDS: Warfarin TAB(*) 2.5 MG PO SCH (17:26)
[2019-03-02] MEDS: Atorvastatin* 10 MG TAB PO SCH (17:26)
--- NOTE | 2019-03-02 19:36 | PN ---
Progress Note Date of Service: 03/02/19 Note: WESLEY COX was visited. Therapy notes read and reviewed. She is feeling better today. INR 1.5 and continues to slowly rise. SHe is otherwise doing okay Current Medications: Active Medications Generic Name Dose Route Start Last Admin Trade Name Freq PRN Reason Stop Dose Admin Acetaminophen 650 mg 02/25/19 16:08 03/02/19 08:06 Tylenol Tab* PO 650 mg Q6H PRN Administration FEVER/PAIN Atorvastatin Calcium 10 mg 02/25/19 17:00 03/02/19 17:26 Lipitor* PO 10 mg 1700 RICH Administration Cyclobenzaprine HCl 5 mg 02/25/19 16:20 03/02/19 08:06 Flexeril Tab* PO 5 mg TID PRN Administration SPASMS Diazepam 5 mg 02/25/19 16:18 Valium Tab(*) PO Q6H PRN ANXIETY Docusate Sodium 100 mg 02/25/19 21:00 03/02/19 08:05 Colace Cap* PO Not Given BID RICH Ferrous Gluconate 324 mg 02/27/19 09:00 03/02/19 08:05 Fergon Tab* PO 324 mg DAILY RICH Administration Hydrochlorothiazide 12.5 mg 02/26/19 09:00 03/02/19 08:04 Hydrodiuril Tab* PO 12.5 mg DAILY RICH Administration Lisinopril 5 mg 02/26/19 09:00 03/02/19 08:05 Prinivil Tab* PO 5 mg DAILY RICH Administration Magnesium Hydroxide 30 ml 02/25/19 16:08 Milk Of Magnesia Liq* PO Q6H PRN CONSTIPATION Metoprolol Tartrate 50 mg 02/25/19 21:00 03/02/19 08:07 Lopressor Tab* PO 50 mg Q12HR RICH Administration Oxycodone/Acetaminophen 1 tab 02/25/19 16:17 03/02/19 16:10 Percocet 5/325 Tab* PO 1 tab Q4H PRN Administration PAIN - MODERATE TO SEVERE Pantoprazole Sodium 40 mg 02/26/19 09:00 03/02/19 08:05 Protonix Tab* PO 40 mg DAILY RICH Administration Senna 2 tab 02/25/19 21:00 03/01/19 20:16 Senokot Tab* PO Not Given BEDTIME RICH Warfarin Sodium 2.5 mg 02/28/19 18:00 02/28/19 18:12 Coumadin Tab(*) PO 2.5 mg Mo@1700 [facility] Administration Protocol Warfarin Sodium 1.25 mg 03/01/19 17:00 03/02/19 17:26 Coumadin Tab(*) PO 1.25 mg SuTuWeThFrSa@1700 [facility] Administration Protocol Vital Signs: Vital Signs Temp Pulse Resp BP Pulse Ox 97.8 F 54 18 115/47 97 03/02/19 16:16 03/02/19 16:16 03/02/19 18:57 03/02/19 16:16 03/02/19 16:45 Lab Results: Laboratory Results - last 24 hr 03/02/19 06:12 INR (Anticoag Therapy) 1.50 H Exam: GENERAL: In no distress LUNGS: Clear bilaterally HEART: Irreg rhythm. S1, S2 ABDOMEN: Soft, +BS EXTREMITIES: Right leg edematous, ecchymotic near hip NEUROLOGIC: Alert and oriented, sensation intact, some surgery related weakness in right hip Assessment/Plan: 1. Right total hip replacement, hematoma, right hip: PT/OT 2. Atrial Fibrillation: Coumadin restarted. Lopressor. INR 1.5 coumadin 1.25 mg tonight 3. Anemia, secondary to hematoma: Hb 9.1 Thursday 4. DVT Prophylaxis: Coumadin 5. Heme + Stool: Protonix. GI workup as outpatient 6. Advance Directives: DNR. Has MOLST 7. Analgesia: Percocet/Flexeril/Tylenol 03/02/19 19:37
[2019-03-02] MEDS: Senna TAB PO SCH (20:13)
[2019-03-03] MEDS: Ferrous Gluconate TAB* 324 MG TAB PO SCH (09:18)
[2019-03-03] MEDS: Docusate CAP* 100 MG PO SCH ×2 (09:18→21:05)
[2019-03-03] MEDS: Hydrochlorothiazide TAB* 25 MG PO SCH (09:18)
[2019-03-03] MEDS: Lisinopril TAB* 5 MG PO SCH (09:19)
[2019-03-03] MEDS: Metoprolol Tartrate TAB* 50 mg PO SCH ×2 (09:20→21:04)
[2019-03-03] MEDS: Pantoprazole TAB * 40 MG TAB PO SCH (09:21)
[2019-03-03] MEDS: Cyclobenzaprine TAB* 10 MG PO PRN (13:21)
[2019-03-03] MEDS: oxyCODONE/Acetamin 5/325 MG* TAB PO PRN ×2 (13:45→21:04)
[2019-03-03] MEDS: Atorvastatin* 10 MG TAB PO SCH (17:36)
[2019-03-03] MEDS: Warfarin TAB(*) 2.5 MG PO SCH (17:37)
--- NOTE | 2019-03-03 19:38 | PN ---
Progress Note Date of Service: 03/03/19 Note: WESLEY COX was visited. Therapy notes read and reviewed. She is ready for discharge in the morning and feels good. She will follow up with Dr. Serna. Current Medications: Active Medications Generic Name Dose Route Start Last Admin Trade Name Freq PRN Reason Stop Dose Admin Acetaminophen 650 mg 02/25/19 16:08 03/02/19 08:06 Tylenol Tab* PO 650 mg Q6H PRN Administration FEVER/PAIN Atorvastatin Calcium 10 mg 02/25/19 17:00 03/03/19 17:36 Lipitor* PO 10 mg 1700 RICH Administration Cyclobenzaprine HCl 5 mg 02/25/19 16:20 03/03/19 13:21 Flexeril Tab* PO 5 mg TID PRN Administration SPASMS Diazepam 5 mg 02/25/19 16:18 Valium Tab(*) PO Q6H PRN ANXIETY Docusate Sodium 100 mg 02/25/19 21:00 03/03/19 09:18 Colace Cap* PO Not Given BID RICH Ferrous Gluconate 324 mg 02/27/19 09:00 03/03/19 09:18 Fergon Tab* PO 324 mg DAILY RICH Administration Hydrochlorothiazide 12.5 mg 02/26/19 09:00 03/03/19 09:18 Hydrodiuril Tab* PO 12.5 mg DAILY RICH Administration Lisinopril 5 mg 02/26/19 09:00 03/03/19 09:19 Prinivil Tab* PO 5 mg DAILY RICH Administration Magnesium Hydroxide 30 ml 02/25/19 16:08 Milk Of Magnesia Liq* PO Q6H PRN CONSTIPATION Metoprolol Tartrate 50 mg 02/25/19 21:00 03/03/19 09:20 Lopressor Tab* PO 50 mg Q12HR RICH Administration Oxycodone/Acetaminophen 1 tab 02/25/19 16:17 03/03/19 13:45 Percocet 5/325 Tab* PO 1 tab Q4H PRN Administration PAIN - MODERATE TO SEVERE Pantoprazole Sodium 40 mg 02/26/19 09:00 03/03/19 09:21 Protonix Tab* PO 40 mg DAILY RICH Administration Senna 2 tab 02/25/19 21:00 03/02/19 20:13 Senokot Tab* PO Not Given BEDTIME RICH Warfarin Sodium 2.5 mg 02/28/19 18:00 02/28/19 18:12 Coumadin Tab(*) PO 2.5 mg Mo@1700 [facility] Administration Protocol Warfarin Sodium 1.25 mg 03/01/19 17:00 03/03/19 17:37 Coumadin Tab(*) PO 1.25 mg SuTuWeThFrSa@1700 [facility] Administration Protocol Vital Signs: Vital Signs Temp Pulse Resp BP Pulse Ox 98.2 F 85 18 116/69 91 03/03/19 17:27 03/03/19 17:27 03/03/19 17:27 03/03/19 17:27 03/03/19 17:27 Exam: GENERAL: In no distress LUNGS: Clear bilaterally HEART: Irreg rhythm. S1, S2 ABDOMEN: Soft, +BS EXTREMITIES: Right leg edematous, ecchymotic near hip NEUROLOGIC: Alert and oriented, sensation intact, some surgery related weakness in right hip Assessment/Plan: 1. Right total hip replacement, hematoma, right hip: PT/OT 2. Atrial Fibrillation: Coumadin restarted. Lopressor. INR 1.5 coumadin 1.25 mg tonight 3. Anemia, secondary to hematoma: Hb 9.1 Thursday 4. DVT Prophylaxis: Coumadin 5. Heme + Stool: Protonix. GI workup as outpatient 6. Advance Directives: DNR. Has MOLST 7. Analgesia: Percocet/Flexeril/Tylenol 03/03/19 19:38
[2019-03-03] MEDS: Senna TAB PO SCH (21:05)
[2019-03-04 06:37] VITALS: BP 112/74
[2019-03-04 07:16] LABS: ABS Basophils 0.1 10^3/ul (0-0.2); ABS Eosinophils 0.1 10^3/ul (0-0.6); ABS Lymphocytes 0.9 10^3/ul (1.0-4.8); ABS Monocytes 0.6 10^3/ul (0-0.8); ABS Neutrophils 3.4 10^3/ul (1.5-7.7); Hematocrit 28 % (35-47); Hemoglobin 9.3 g/dL (12.0-16.0); Lymphocyte % 17.4 %; Mean Corpuscular HGB Conc 34 g/dL (31-36); Mean Corpuscular Hemoglobin 31 pg (27-31); Mean Corpuscular Volume 91 fL (80-97); Mean Platelet Volume 7.9 fL (7.4-10.4); Platelet Count 388 10^3/uL (150-450); Red Blood Count 3.04 10^6 /uL (3.70-4.87); Red Cell Distribution Width 15 % (10-15); White Blood Count 5.1 10^3/uL (3.5-10.8)
[2019-03-04 07:21] LABS: INR 1.45 (0.82-1.09)
[2019-03-04] MEDS: Docusate CAP* 100 MG PO SCH (08:43)
[2019-03-04] MEDS: Lisinopril TAB* 5 MG PO SCH (09:02)
[2019-03-04] MEDS: Hydrochlorothiazide TAB* 25 MG PO SCH (09:02)
[2019-03-04] MEDS: Ferrous Gluconate TAB* 324 MG TAB PO SCH (09:02)
[2019-03-04] MEDS: Metoprolol Tartrate TAB* 50 mg PO SCH (09:03)
[2019-03-04] MEDS: Pantoprazole TAB * 40 MG TAB PO SCH (09:03)
--- NOTE | 2019-03-04 10:13 | PN ---
Progress Note Date of Service: 03/04/19 Note: WESLEY CXO was visited. Nursing and therapy notes read and reviewed. No chest pain, shortness of breath or abdominal pain. She feels ready to go home today. Current Medications: Active Medications Generic Name Dose Route Start Last Admin Trade Name Freq PRN Reason Stop Dose Admin Acetaminophen 650 mg 02/25/19 16:08 03/02/19 08:06 Tylenol Tab* PO 650 mg Q6H PRN Administration FEVER/PAIN Atorvastatin Calcium 10 mg 02/25/19 17:00 03/03/19 17:36 Lipitor* PO 10 mg 1700 RICH Administration Cyclobenzaprine HCl 5 mg 02/25/19 16:20 03/03/19 13:21 Flexeril Tab* PO 5 mg TID PRN Administration SPASMS Diazepam 5 mg 02/25/19 16:18 Valium Tab(*) PO Q6H PRN ANXIETY Docusate Sodium 100 mg 02/25/19 21:00 03/04/19 08:43 Colace Cap* PO Not Given BID RICH Ferrous Gluconate 324 mg 02/27/19 09:00 03/04/19 09:02 Fergon Tab* PO 324 mg DAILY RICH Administration Hydrochlorothiazide 12.5 mg 02/26/19 09:00 03/04/19 09:02 Hydrodiuril Tab* PO 12.5 mg DAILY RICH Administration Lisinopril 5 mg 02/26/19 09:00 03/04/19 09:02 Prinivil Tab* PO 5 mg DAILY RICH Administration Magnesium Hydroxide 30 ml 02/25/19 16:08 Milk Of Magnesia Liq* PO Q6H PRN CONSTIPATION Metoprolol Tartrate 50 mg 02/25/19 21:00 03/04/19 09:03 Lopressor Tab* PO 50 mg Q12HR RICH Administration Oxycodone/Acetaminophen 1 tab 02/25/19 16:17 03/03/19 21:04 Percocet 5/325 Tab* PO 1 tab Q4H PRN Administration PAIN - MODERATE TO SEVERE Pantoprazole Sodium 40 mg 02/26/19 09:00 03/04/19 09:03 Protonix Tab* PO 40 mg DAILY RICH Administration Senna 2 tab 02/25/19 21:00 03/03/19 21:05 Senokot Tab* PO Not Given BEDTIME RICH Warfarin Sodium 2.5 mg 02/28/19 18:00 02/28/19 18:12 Coumadin Tab(*) PO 2.5 mg Mo@1700 [facility] Administration Protocol Warfarin Sodium 1.25 mg 03/01/19 17:00 03/03/19 17:37 Coumadin Tab(*) PO 1.25 mg [id number]@1700 [facility] Administration Protocol Vital Signs: Vital Signs Temp Pulse Resp BP Pulse Ox 97.9 F 76 16 112/74 98 03/04/19 06:37 03/04/19 06:37 03/04/19 06:37 03/04/19 06:37 03/04/19 06:37 Lab Results: Laboratory Results - last 24 hr 03/04/19 03/04/19 06:23 06:23 WBC 5.1 RBC 3.04 L Hgb 9.3 L Hct 28 L MCV 91 MCH 31 MCHC 34 RDW 15 Plt Count 388 MPV 7.9 Neut % (Auto) 66.5 Lymph % (Auto) 17.4 Mcdonald % (Auto) 12.7 Eos % (Auto) 2.0 Baso % (Auto) 1.4 Absolute Neuts (auto) 3.4 Absolute Lymphs (auto) 0.9 L Absolute Monos (auto) 0.6 Absolute Eos (auto) 0.1 Absolute Basos (auto) 0.1 Absolute Nucleated RBC 0.0 Nucleated RBC % 0.0 INR (Anticoag Therapy) 1.45 H Exam: GENERAL: No acute distress. alert and appropriate. LUNGS: Clear to auscultation bilaterally HEART: Irregular rhythm. (h/o A.fib) ABDOMEN: Soft, + bowel sounds, non-tender, non-distended EXTREMITIES: Right leg edematous, but no pedal edema. ecchymotic near hip NEUROLOGIC: Alert and oriented, sensation intact, some surgery related weakness in right hip Assessment/Plan: 1. Right total hip replacement, hematoma, right hip: f/u with Dr. Serna next week. Daughter will help with dressing changes. 2. Atrial Fibrillation: Coumadin restarted. Lopressor. INR 1.45. Discussed take coumadin 2.5 mg tonight then back to 1.25mg and will have INRs checked at home with results to Dr. Quinn who usually manages this. 3. Anemia, secondary to hematoma: Hb 9.3 and stable 4. DVT Prophylaxis: Coumadin 5. Heme + Stool: Protonix. GI workup as outpatient 6. Advance Directives: DNR. Has MOLST 7. Analgesia: Percocet/Flexeril/Tylenol 8. Dispo: home today. f/u with Dr. Serna next week. Daughter will help with dressing changes. 03/04/19 10:11
--- NOTE | 2019-03-04 13:08 | DS ---
CC: Dr. Serna; Dr. Quinn REHABILITATION DISCHARGE SUMMARY: DATE OF ADMISSION: 02/25/19 DATE OF DISCHARGE: 03/04/19 PRIMARY CARE PROVIDER: Dr. Quinn. ORTHOPEDIC SURGEON: Dr. Serna. REASON FOR ADMISSION: Status post right total hip replacement complicated by hematoma. HISTORY OF PRESENT ILLNESS: For full details of her acute hospitalization leading up to her admission, please see the note dictated by Dr. Sinclair on 08/04. REHABILITATION COURSE: During her time on the [facility], her Coumadin was reinitiated. She refused to use Lovenox. Her INR has gradually increased, but then plateaued on a dose of 1.25 mg per day. Today, her INR was 1.45 and she was advised to take 2.5 mg tonight and then go back to her daily dosing of 1.25 mg per day. She will have INRs checked every Thursday and Thursday by visiting nurse services, with the results going to Dr. Quinn, who manages her Coumadin on a regular basis. Her hemoglobin and hematocrit have stayed stable. She has required intermittent dressing changes from the area of her hematoma and right hip replacement. Dr. Serna gave verbal instructions to change the dressing as needed. She has supplies to do that and will have daughter assist her as well as visiting nurse services when she goes home. She will follow up with Dr. Serna on 03/10/19. During her time on [facility], she participated well with occupational therapy, and at the time of discharge, is independent with dressing using adaptive equipment, grooming standing at the sink with a front wheel walker, bathing, and toileting. Her daughter will assist her with dressing changes. She also participated well with physical therapy and at the time of discharge, was independent with bed mobility, transfers, and walking with a rolling walker. She can do 5 steps with 2 rails independently and has a home exercise program. During her time at [facility], she was found to have a Hemoccult- positive stool. She was started on a proton pump inhibitor. It was recommended that she have an EGD and colonoscopy as an outpatient. DISCHARGE MEDICATIONS: 1. Cyclobenzaprine 5 mg t.i.d. p.r.n. muscle spasm. 2. Diazepam 5 mg q.6 hours p.r.n. anxiety. 3. Ferrous gluconate 324 mg daily. 4. Hydrochlorothiazide 12.5 mg daily. 5. Lisinopril 5 mg daily. 6. Metoprolol 50 mg q.12 hours. 7. Percocet 1 tablet q.4 hours p.r.n. pain, maximum daily dose of 3 per day. 8. Pantoprazole 40 mg daily. 9. Senna 2 tablets q.h.s. p.r.n. constipation. 10. Warfarin 2.5 mg every Thursday and 1.25 mg every Thursday, Thursday, Thursday, Thursday, Thursday, at 5:00 p.m. 11. Lovastatin 20 mg daily. DISCHARGE CONDITION: Fair. DISCHARGE DISPOSITION: Home with family support. DISCHARGE DIAGNOSES: 1. Right total hip replacement, status post hematoma, right hip. 2. Atrial fibrillation with history of stroke. 3. Hypertension. FOLLOWUP: 1. She has a followup with [facility] on 04/08/19 at 11:20 a.m. 2. Follow up with [facility] on 03/31/19 at 1:15 p.m. 3. Follow up with Dr. Serna on 03/10/19 at 1:00 p.m. 4. [employer] initiating 03/07/19 at 12:00 p.m. 5. Visiting nurse services have been ordered for long-term, physical therapy, home health aide, and INRs every Thursday and with results going to Dr. Quinn. 6. She has a referral to the [facility] for shoe lift. 7. Follow up with Dr. Quinn in 1 to 2 weeks regarding the heme-positive stool at [facility] and her ongoing anticoagulation management for chronic atrial fibrillation. [id number]/[facility] #: [id number] MTDD
[2019-03-04] MEDS ORDERED: Warfarin TAB(*) 2.5 MG PO SCH (17:00)
[2019-03-05] MEDS ORDERED: Warfarin TAB(*) 2.5 MG PO SCH (17:00)
== END 2019-03-04 13:30 | disposition home health service (06) | DRG 560 ==
LOC: PMRU 15:09
PROVIDERS: ADMIT Physical Medicine & Rehabilitation; ATTEND Physical Medicine & Rehabilitation
PROC: F07Z5ZZ Bed Mobility Treatment (ICD-10-PCS; principal; 2019-02-25)
PROC: F07Z9ZZ Gait Training/Functional Ambulation Treatment (ICD-10-PCS; 2019-02-25)
PROC: F07Z8ZZ Transfer Training Treatment (ICD-10-PCS; 2019-02-25)
PROC: F08Z0ZZ Bathing/Showering Techniques Treatment (ICD-10-PCS; 2019-02-25)
PROC: F08Z1ZZ Dressing Techniques Treatment (ICD-10-PCS; 2019-02-25)
PROC: F08Z3ZZ Feeding/Eating Treatment (ICD-10-PCS; 2019-02-25)
DX: Z47.1 Aftercare following joint replacement surgery (principal); L76.32 Postprocedural hematoma of skin and subcutaneous tissue following other procedure; Z96.641 Presence of right artificial hip joint; I48.91 Unspecified atrial fibrillation; I10 Essential (primary) hypertension; D50.0 Iron deficiency anemia secondary to blood loss (chronic); Z66 Do not resuscitate; Z86.73 Personal history of transient ischemic attack (TIA), and cerebral infarction without residual deficits; Z79.01 Long term (current) use of anticoagulants; Z79.899 Other long term (current) drug therapy; Z88.1 Allergy status to other antibiotic agents; Z88.5 Allergy status to narcotic agent; Z87.891 Personal history of nicotine dependence
CPT/HCPCS: 36415; 80053; 85025; 85610; A9270-GY

== ENCOUNTER 2022-05-14 15:21 | Inpatient (IN) ==
[2022-05-14 15:58] LABS: ABS Lymphocytes 0.9 10^3/ul (1.0-4.8); ABS Monocytes 1.2 10^3/ul (0-0.8); Eosinophil % 0.2 %; Hematocrit 40 % (35-47); Hemoglobin 13.3 g/dL (12.0-16.0); Lymphocyte % 6.1 %; Mean Corpuscular HGB Conc 33 g/dL (31-36); Mean Corpuscular Hemoglobin 29 pg (27-31); Mean Corpuscular Volume 87 fL (80-97); Mean Platelet Volume 9.1 fL (7.4-10.4); Nucleated Red Blood Cells % 0.1; Platelet Count 257 10^3/uL (150-450); Red Cell Distribution Width 14 % (10-15); White Blood Count 15.2 10^3/uL (3.5-10.8)
[2022-05-14 16:29] LABS: INR 4.54 (0.89-1.11)
[2022-05-14 16:32] LABS: Albumin 3.7 g/dL (3.2-5.2); Albumin/Globulin Ratio 1.3 (1-3); C Reactive Protein 297.43 mg/L (<8.01); Calcium 9.3 mg/dL (8.6-10.3); Globulin 2.8 g/dL (2-4); Potassium 3.4 mmol/L (3.5-5.0); Total Protein 6.5 g/dL (6.4-8.9); eGFR CKD-EPI 36.3 (>60)
[2022-05-14 17:29] LABS: High Sensitivity Troponin 1 Hr 11 pg/mL (<15)
[2022-05-14 20:04] LABS: Urine Appearance Cloudy; Urine Bilirubin Negative (Negative); Urine Blood 2+ (Negative); Urine Color Amber; Urine Glucose Negative (Negative); Urine Ketones Trace (Negative); Urine Nitrite Negative (Negative); Urine Protein 2+(100 mg/dL) (Negative); Urine Specific Gravity 1.029 (1.002-1.030); Urine Urobilinogen Positive (Negative)
[2022-05-14 20:20] LABS: Urine Bacteria Absent (Absent); Urine Red Blood Cell 3+(>10/hpf) (Absent); Urine Squamous Epithelial Cell Present (Absent); Urine White Blood Cell 2+(11-20/hpf) (Absent)
[2022-05-14] MEDS ORDERED: Albuterol/Ipratropium NEB.SOL (2.5/0.5 MG) 3 ML NEB.SOLN INH ONE (21:39)
[2022-05-14] MEDS ORDERED: cefTRIAXone 1 gm/50 mL D5W 1 GM/50 ML BAG IV ONE (21:58)
[2022-05-14] MEDS ORDERED: Lactated Ringers 1000 ml BAG 1,000 ML IV ONE (21:59)
[2022-05-14] MEDS ORDERED: Iodixanol (CONTRAST) 320 MG/ML 100 ML SDV IV ONE (22:04)
[2022-05-14] MEDS ORDERED: HYDROcodone/ACETAMIN 5/325 mg TAB PO ONE (23:00)
[2022-05-14] MEDS ORDERED: Ondansetron 4 mg VIAL 2 MG/ML 2 ml VIAL IV ONE (23:01)
[2022-05-14] MEDS ORDERED: Morphine 4 MG/ML VIAL (1 ml) IV ONE (23:01)
[2022-05-15] MEDS ORDERED: Piperacillin/Tazobac ADVAN 3.375 GM in NS 0.9% 100 ml BAG 100 ML IVPB ONE (01:53)
[2022-05-15 03:53] LABS: Magnesium 1.9 mg/dL (1.9-2.7)
[2022-05-15] MEDS ORDERED: Zosyn per Pharmacy NOTE FOLLOW UP SCH (04:00)
[2022-05-15] MEDS ORDERED: Lactated Ringers 1000 ml BAG 1,000 ML IV SCH (04:00)
[2022-05-15] MEDS ORDERED: Lactated Ringers 1000 ml BAG 1,000 ML IV ONE (04:01)
[2022-05-15 06:15] LABS: ABS Basophils 0.1 10^3/ul (0-0.2); ABS Eosinophils 0.1 10^3/ul (0-0.6); ABS Lymphocytes 1.1 10^3/ul (1.0-4.8); ABS Monocytes 0.9 10^3/ul (0-0.8); ABS Neutrophils 9.4 10^3/ul (1.5-7.7); Eosinophil % 1.2 %; Hematocrit 37 % (35-47); Hemoglobin 11.8 g/dL (12.0-16.0); Lymphocyte % 9.6 %; Mean Corpuscular HGB Conc 32 g/dL (31-36); Mean Corpuscular Hemoglobin 28 pg (27-31); Mean Corpuscular Volume 88 fL (80-97); Mean Platelet Volume 8.4 fL (7.4-10.4); Nucleated Red Blood Cells % 0.1; Platelet Count 247 10^3/uL (150-450); Red Cell Distribution Width 14 % (10-15); White Blood Count 11.6 10^3/uL (3.5-10.8)
[2022-05-15 06:20] LABS: INR 4.32 (0.89-1.11)
[2022-05-15] MEDS ORDERED: Ondansetron 4 mg VIAL 2 MG/ML 2 ml VIAL IV PRN (06:50)
[2022-05-15 06:53] LABS: Albumin 3.3 g/dL (3.2-5.2); Albumin/Globulin Ratio 1.3 (1-3); Calcium 8.9 mg/dL (8.6-10.3); Globulin 2.6 g/dL (2-4); Potassium 3.5 mmol/L (3.5-5.0); Total Bilirubin 1.1 mg/dL (0.2-1.0); Total Protein 5.9 g/dL (6.4-8.9); eGFR CKD-EPI 44.1 (>60)
[2022-05-15] MEDS: ZOSYN 3.375 GM Q8H per EXTENDED INFUSION IV SCH ×3 (08:49→22:34)
[2022-05-15] MEDS: D5W 1/2 NS 40 Meq KCL 1000 ml 1,000 ML IV SCH ×2 (10:39→22:35)
[2022-05-16 05:04] LABS: ABS Eosinophils 0.2 10^3/ul (0-0.6); ABS Lymphocytes 0.7 10^3/ul (1.0-4.8); ABS Monocytes 0.9 10^3/ul (0-0.8); ABS Neutrophils 6.3 10^3/ul (1.5-7.7); Eosinophil % 2.8 %; Hematocrit 33 % (35-47); Hemoglobin 10.9 g/dL (12.0-16.0); Lymphocyte % 8.7 %; Mean Corpuscular HGB Conc 33 g/dL (31-36); Mean Corpuscular Hemoglobin 29 pg (27-31); Mean Corpuscular Volume 88 fL (80-97); Mean Platelet Volume 8.4 fL (7.4-10.4); Platelet Count 218 10^3/uL (150-450); Red Blood Count 3.81 10^6 /uL (3.70-4.87); Red Cell Distribution Width 13 % (10-15); White Blood Count 8.1 10^3/uL (3.5-10.8)
[2022-05-16 05:35] LABS: Albumin 3.2 g/dL (3.2-5.2); Albumin/Globulin Ratio 1.5 (1-3); Calcium 8.4 mg/dL (8.6-10.3); Globulin 2.2 g/dL (2-4); Magnesium 1.8 mg/dL (1.9-2.7); Potassium 3.7 mmol/L (3.5-5.0); Total Bilirubin 0.8 mg/dL (0.2-1.0); Total Protein 5.4 g/dL (6.4-8.9); eGFR CKD-EPI 55.7 (>60)
[2022-05-16 05:38] LABS: INR 5.71 (0.89-1.11)
[2022-05-16] MEDS: ZOSYN 3.375 GM Q8H per EXTENDED INFUSION IV SCH ×3 (06:05→22:40)
[2022-05-16] MEDS ORDERED: Magnesium Sulfate 2 gm BAG 2 GM/50 ML BAG IVPB ONE ×2 (07:58→08:03)
[2022-05-16] MEDS ORDERED: Phytonadione Oral Solution 5 MG/25 ML UDC PO ONE ×2 (08:03→09:50)
[2022-05-16] MEDS ORDERED: Potassium Chlor 20 meq TAB.ER PO ONE (08:03)
[2022-05-17 05:40] LABS: Hematocrit 34 % (35-47); Hemoglobin 11.2 g/dL (12.0-16.0); Mean Corpuscular HGB Conc 33 g/dL (31-36); Mean Corpuscular Hemoglobin 29 pg (27-31); Mean Corpuscular Volume 88 fL (80-97); Mean Platelet Volume 8.4 fL (7.4-10.4); Platelet Count 229 10^3/uL (150-450); Red Blood Count 3.83 10^6 /uL (3.70-4.87); Red Cell Distribution Width 14 % (10-15); White Blood Count 8.2 10^3/uL (3.5-10.8)
[2022-05-17] MEDS: ZOSYN 3.375 GM Q8H per EXTENDED INFUSION IV SCH ×2 (06:00→15:04)
[2022-05-17 06:29] LABS: Calcium 8.7 mg/dL (8.6-10.3); Potassium 4.2 mmol/L (3.5-5.0); eGFR CKD-EPI 59.1 (>60)
[2022-05-17] MEDS ORDERED: Mometasone/Formoter 100/5 MDI INH SCH (07:00)
[2022-05-17 08:09] LABS: INR 2.31 (0.89-1.11)
[2022-05-17] MEDS ORDERED: Warfarin per PHARMACY **NOTE FOLLOW UP SCH (16:00)
[2022-05-17] MEDS: oxyCODONE/Acetamin 5/325 mg TAB PO PRN (17:23)
[2022-05-17] MEDS: Amoxicillin/Clavul 875/125 TAB (Augmentin 875 tab) PO SCH (20:04)
[2022-05-18] MEDS: oxyCODONE/Acetamin 5/325 mg TAB PO PRN ×3 (00:51→19:57)
[2022-05-18 06:59] LABS: INR 2.27 (0.89-1.11)
[2022-05-18] MEDS: Amoxicillin/Clavul 875/125 TAB (Augmentin 875 tab) PO SCH ×2 (09:38→19:58)
[2022-05-18] MEDS: Psyllium PAK PO SCH (11:13)
[2022-05-18 14:49] LABS: Calcium 8.7 mg/dL (8.6-10.3); Potassium 3.8 mmol/L (3.5-5.0); eGFR CKD-EPI 62.9 (>60)
[2022-05-18] MEDS: Levalbuterol HFA INHALER MDI INH PRN ×2 (17:12→20:18)
[2022-05-18] MEDS ORDERED: Furosemide 40 mg/4 ml IV VIAL IV ONE (17:15)
[2022-05-19 06:13] LABS: INR 2.97 (0.89-1.11)
[2022-05-19 07:10] LABS: Calcium 9.3 mg/dL (8.6-10.3); Magnesium 1.7 mg/dL (1.9-2.7); Potassium 3.3 mmol/L (3.5-5.0)
[2022-05-19 07:11] LABS: eGFR CKD-EPI 49.3 (>60)
[2022-05-19] MEDS ORDERED: Magnesium Sulfate 2 gm BAG 2 GM/50 ML BAG IVPB ONE (07:18)
[2022-05-19] MEDS ORDERED: Potassium Chlor 20 meq TAB.ER PO ONE (07:18)
[2022-05-19] MEDS: Amoxicillin/Clavul 875/125 TAB (Augmentin 875 tab) PO SCH ×2 (09:08→18:24)
[2022-05-19] MEDS: Psyllium PAK PO SCH (09:09)
[2022-05-19 16:09] VITALS: BP 154/82
== END 2022-05-19 18:30 | disposition home or self-care (01) | DRG 445 ==
LOC: ED 15:21 → EDHOLD 15:21 → SUATTDRO 05-15 03:29 → MEDTELE 05-15 05:30
PROVIDERS: ADMIT Internal Medicine; ATTEND Internal Medicine